=== PATIENT | female | born 1970 | race Caucasian/White ===

== ENCOUNTER 2016-07-08 19:29 | Emergency (ER) | payer OTHER ==
[2016-07-08] MEDS ORDERED: LITHIUM CARBON300 MG PO (20:07)
[2016-07-08] MEDS ORDERED: ADDERALL XR 2020 MG PO (20:07)
[2016-07-08] MEDS ORDERED: VRAYLAR1.5 MG PO (20:08)
== END 2016-07-08 20:53 | disposition short-term general hospital (02) ==
LOC: ER 19:29
DX: R20.2 Paresthesia of skin (principal); F31.9 Bipolar disorder, unspecified; F90.9 Attention-deficit hyperactivity disorder, unspecified type; F17.210 Nicotine dependence, cigarettes, uncomplicated; Z79.899 Other long term (current) drug therapy

== ENCOUNTER 2016-07-27 06:33 | Emergency (ER) | payer OTHER ==
[~2016-07-27] VITALS: Ht 157.5 cm; Wt 59.0 kg
[~2016-07-27 06:33] MED LIST: ADDERALL XR 2020 MG PO; LITHIUM CARBON300 MG PO; VRAYLAR1.5 MG PO
== END 2016-07-27 07:55 | disposition short-term general hospital (02) ==
LOC: ER 06:33
DX: R07.9 Chest pain, unspecified (principal); R20.2 Paresthesia of skin; D72.829 Elevated white blood cell count, unspecified; F90.9 Attention-deficit hyperactivity disorder, unspecified type; E78.5 Hyperlipidemia, unspecified; F30.9 Manic episode, unspecified; F17.210 Nicotine dependence, cigarettes, uncomplicated; Z79.899 Other long term (current) drug therapy